=== PATIENT | male | born 1970 | race Caucasian/White ===

== ENCOUNTER 2016-08-21 14:13 | Emergency (ER) | payer OTHER ==
[2016-08-21 15:15] LABS: URINE BILIRUBIN NEGATIVE (NEGATIVE); URINE BLOOD NEGATIVE (NEGATIVE); URINE GLUCOSE (UA) NEGATIVE (NEGATIVE); URINE LEUKOCYTE ESTERASE NEGATIVE (NEGATIVE); URINE NITRITE NEGATIVE (NEGATIVE); URINE PROTEIN NEGATIVE (NEGATIVE); URINE UROBILINOGEN NORMAL (0-1 mg/dl)
[2016-08-21 15:16] LABS: URINE APPEARANCE CLEAR; URINE COLOR LIGHT YELLOW
[2016-08-21 15:35] LABS: ABSOLUTE NEUTROPHIL COUNT 4.7 K/mm3 (1.8-7.7); BASO % 0.4 % (0.2-1.0); EOS # 0.1 (0.0-0.5); EOS % 1.5 % (0.9-2.9); HEMATOCRIT 30.3 % (32.0-52.0); HEMOGLOBIN 8.6 gm/l (14.0-18.0); IMM NEUT% 0.3 % (0-1); LYMPH # 1.2 (1.0-4.8); LYMPH % 18.4 % (15-45); MEAN CELL VOLUME 72.7 fl (80.0-94.0); MEAN CORPUSCULAR HEMOGLOBIN 20.6 pg (27.0-31.0); MEAN CORPUSCULAR HGB CONC 28.4 g/dl (33.0-37.0); MEAN PLATELET VOLUME 10.7 fl (7.4-10.4); MONO # 0.6 (0.0-0.8); MONO % 9.6 % (4-12); NEUT % 69.8 % (43-75); PLATELET COUNT 290 K/mm3 (130-400); RED CELL DISTRIBUTION WIDTH 18.5 % (11.5-14.5)
[2016-08-21] MEDS ORDERED: MORPHINE SULFATE 2 MG/ML SYRINGE ONE (15:50)
[2016-08-21] MEDS ORDERED: MORPHINE SULFATE 4 MG/ML SYRINGE ONE (15:50)
[2016-08-21 16:06] LABS: INR 1.09; PROTHROMBIN TIME 11.6 SECONDS (9.3-11.4)
[2016-08-21 16:11] LABS: ALB/GLOB RATIO 1.5 (>1.0); ALBUMIN 4.1 gm/dL (3.5-5.7); CALCIUM 9.2 mg/dL (8.6-10.3)
[2016-08-21] MEDS ORDERED: OXYCODONE/ACETAMINOPHEN 5/325 MG TABLET ONE (16:54)
[2016-08-21] MEDS ORDERED: PREDNISONE 20 MG TABLET ONE (16:54)
[2016-08-21] MEDS ORDERED: PANTOPRAZOLE 40 MG TABLET DR PO ONE (16:54)
== END 2016-08-21 17:21 | disposition home or self-care (01) ==
LOC: ED 14:13
DX: M54.32 Sciatica, left side (principal); R53.1 Weakness; I48.91 Unspecified atrial fibrillation; E78.5 Hyperlipidemia, unspecified; I10 Essential (primary) hypertension; J45.909 Unspecified asthma, uncomplicated; G47.30 Sleep apnea, unspecified
CPT/HCPCS: 85025; 80053; 82728; 85610; 85045; 81003; 84484; 99284 ×2; 96374; 51798; J2270 ×2; A9270 ×2; J7512